=== PATIENT | female | born 2000 | race Caucasian/White ===

== ENCOUNTER 2018-03-30 20:49 | Emergency (ER) | payer OTHER ==
[2018-03-30] MEDS ORDERED: FAMOTIDINE 20 MG TAB PO ONE (21:18)
[2018-03-30] MEDS ORDERED: predniSONE 20 MG TAB PO ONE (21:18)
[2018-03-30] MEDS ORDERED: diphenhydrAMINE 25 MG CAP PO ONE (21:19)
--- NOTE | 2018-03-30 21:24 | EDPHY ---
H & P Time Seen by Provider: 03/30/18 21:08 HPI/ROS: This patient has a documented cow's milk/ dairy allergy and inadvertently ingested some dairy at 6:00 p.m. Today with onset of urticaria thereafter that covers her arms and torso in his describes itchy. She denies any other symptoms but did have much improvement from 25 mg of Benadryl prior to arrival. Her friend drove her in by private vehicle for evaluation of her symptoms. She states that she has developed severe urticaria in the past that goes for multiple days and similar instances. ROS: Constitutional: No significant fatigue. HEENT: No angioedema or other complaints Pulmonary: She denies any wheezing or shortness of breath. Cardiovascular: No lightheadedness or heart palpitations GI: No nausea vomiting or diarrhea. She denies any abdominal cramping or belly pain 5 point review of symptoms is performed and otherwise negative with exception of pertinent positives and negatives listed in HPI and ROS Smoking Status: Never smoked Physical Exam: General Appearance: Alert, no distress. Eyes: Pupils equal and round no pallor or injection. ENT, Mouth: Mucous membranes moist. No angioedema. No dysphonia. No drooling or stridor Respiratory: There are no retractions, lungs are clear to auscultation. No wheezing. Cardiovascular: Regular rate and rhythm. Gastrointestinal: Soft, nontender Neurological: GCS 15 Skin: Diffuse erythematous papules over arms and torso the simon easily with pressure consistent with urticaria. No petechia or purpura. Musculoskeletal: Neck is supple nontender. Psychiatric: Mood and affect are normal DIFFERENTIAL DIAGNOSIS: After history and physical exam differential diagnosis was considered for allergic urticaria, contact dermatitis, viral dermatitis Constitutional: Initial Vital Signs Temperature (C) 36.7 C 03/30/18 20:56 Heart Rate 67 03/30/18 20:56 Respiratory Rate 16 03/30/18 20:56 Blood Pressure 122/88 H 03/30/18 20:56 O2 Sat (%) 93 03/30/18 20:56 O2 Delivery Mode Room Air Allergies/Adverse Reactions: doxycycline Allergy (Verified 03/30/18 21:08) Home Medications: Medication Instructions Recorded Adderall 10 MG (*) 03/30/18 Zoloft 50mg (*) 03/30/18 Zyrtec 03/30/18 predniSONE 40 mg PO DAILY #10 tab 03/30/18 MDM/Departure - MDM Medications Given: Discontinued Medications Diphenhydramine HCl (Benadryl) 50 mg PO EDNOW ONE Stop: 03/30/18 21:20 Last Admin: 03/30/18 21:27 Dose: 50 mg Famotidine (Pepcid) 40 mg PO EDNOW ONE Stop: 03/30/18 21:19 Last Admin: 03/30/18 21:25 Dose: 40 mg Prednisone (Prednisone) 40 mg PO EDNOW ONE Stop: 03/30/18 21:19 Last Admin: 03/30/18 21:26 Dose: 40 mg ED Course/Re-evaluation: Prednisone, Pepcid and Benadryl p.o.. I counseled her regarding acute allergic reaction. She will continue on the same medications is now patient understands need to return emergency department should she develop additional worsening symptoms. She will follow up with primary care physician for any ongoing symptoms despite treatment plan. - Depart Disposition: Home, Routine, Self-Care Clinical Impression: Allergic urticaria Condition: Good Instructions: Urticaria (ED) Additional Instructions: Diagnosis: Allergic urticaria Plan: Prednisone as prescribed Pepcid daily until symptoms resolve Benadryl or other anti dyspnea or choice as well until symptoms resolve Return for any significant worsening despite treatment plan Follow-up with primary care physician for any ongoing symptoms despite treatment plan Prescriptions: predniSONE 40 mg PO DAILY #10 tab Referrals: NONE *PRIMARY CARE P,. [Primary Care Provider] - As per Instructions Tricia Reeder MD [[facility] [place] Primary Care Provider] - As per Instructions
[2018-03-30 21:44] VITALS: BP 112/81
== END 2018-03-30 21:41 | disposition home or self-care (01) ==
LOC: CED 20:49
DX: L50.0 Allergic urticaria (principal); Z91.011 Allergy to milk products
CPT/HCPCS: J7512

== ENCOUNTER 2018-04-01 18:12 | Emergency (ER) | payer OTHER ==
[2018-04-01 18:33] VITALS: BP 115/75
--- NOTE | 2018-04-01 18:38 | EDPHY ---
H & P Time Seen by Provider: 04/01/18 18:34 HPI/ROS: Chief complaint. Rash HPI. 17-year-old female seen in the emergency department 2 days ago on March 30 with generalized urticaria. At that time she had ingested dairy and she has a known allergy to cow's milk and dairy. She does carry an EpiPen. Her symptoms largely resolved with Pepcid Benadryl and prednisone. She was given a prescription for prednisone daily. She took prednisone Pepcid and Benadryl this morning but was under the impression she could only take these medicines once per day. She and her friends when out to dinner this evening and she developed a rash on her face. She was concerned about her airway. She does have an EpiPen but did not use it. Her rash is now much improved and only on her legs. She has no shortness of breath or difficulty swallowing or breathing. She denies any new skin products, cleansers, foods, bedding, soaps ROS 10 systems were reviewed and negative with the exception of the elements mentioned in the history of present illness Past Medical/Surgical History: Knee surgery, AVD, depression Social History: Single, nonsmoker, no alcohol Smoking Status: Never smoked Physical Exam: General Appearance: Alert pleasant well-developed female mild distress. Vital signs are stable Eyes: Pupils equal and round no pallor or injection. ENT, pharynx without injection. Swallowing secretions. No stridor Respiratory: There are no retractions, lungs are clear to auscultation. Cardiovascular: Regular rate and rhythm. Gastrointestinal: Abdomen is soft and nontender, no masses, bowel sounds normal. Neurological: Awake and alert, sensory and motor exams grossly normal. Skin: Mild erythematous urticarial type rash on the legs around the knee area only. No rash to face and neck. Really no rash on her back or abdomen and none on her arms. Musculoskeletal: Neck is supple nontender. Extremities symmetrical, full range of motion. Psychiatric: Patient is oriented X 3, there is no agitation. Constitutional: Initial Vital Signs Temperature (C) 36.5 C 04/01/18 18:31 Heart Rate 71 04/01/18 18:31 Respiratory Rate 20 04/01/18 18:31 Blood Pressure 115/75 04/01/18 18:31 O2 Sat (%) 96 04/01/18 18:31 O2 Delivery Mode Room Air Allergies/Adverse Reactions: doxycycline Allergy (Verified 04/01/18 18:27) Home Medications: Medication Instructions Recorded Adderall 10 MG (*) 03/30/18 Zoloft 50mg (*) 03/30/18 Zyrtec 03/30/18 predniSONE 40 mg PO DAILY #10 tab 03/30/18 Medical Decision Making Procedures: Patient shows me a picture from 1 hr ago when the rash was on her face. It is completely resolved at this point Patient is given Benadryl and Pepcid orally ED Course/Re-evaluation: Patient and I discussed treatment plan including that she can use Benadryl every 6-8 hours and Pepcid twice daily though the prednisone should really be just given once daily. She is encouraged her to use her EpiPen for difficulty swallowing or breathing. She is encouraged to return for worsening symptoms. She and I discussed referral to mathematical engineering technician. She expresses understanding and agreement Differential Diagnosis: Allergic reaction that is recurrent from 2 days ago. Possibly ingested dairy. No evidence tonight for anaphylaxis. The rash that was quite prominent an hour ago in the picture is now resolving Departure - Departure Disposition: Home, Routine, Self-Care Clinical Impression: Urticaria Allergic reaction Qualifiers: Encounter type: initial encounter Qualified Code(s): T78.40XA - Allergy, unspecified, initial encounter Condition: Good Instructions: Urticaria (ED) Additional Instructions: May use Benadryl 25 mg every 6-8 hours as needed for rash. May use Pepcid twice daily if necessary but otherwise just once a day. Prednisone doses once daily Return for worsening symptoms. Follow-up with mathematical engineering technician for further evaluation Referrals: NONE *PRIMARY CARE P,. [Primary Care Provider] - As per Instructions Leigh Christianson MD [[facility] [place] Primary Care Provider] - 2-3 days, call for appt.
[2018-04-01] MEDS ORDERED: FAMOTIDINE 20 MG TAB PO ONE (18:52)
[2018-04-01] MEDS ORDERED: diphenhydrAMINE 25 MG CAP PO ONE (18:52)
== END 2018-04-01 19:08 | disposition home or self-care (01) ==
LOC: CED 18:12
DX: L50.0 Allergic urticaria (principal)